=== PATIENT | male | born 1960 | race Caucasian/White ===

== ENCOUNTER 2023-05-30 16:06 | Emergency (ER) | payer BC, SELFPAY ==
[2023-05-30 16:11] VITALS: BP 181/91
[2023-05-30 17:12] VITALS: BP 158/83
[2023-05-30 17:14] VITALS: BMI 37.4
--- NOTE | 2023-05-30 17:40 | EDRN ---
Singh FLORES in room w/ pt and his at this time.
[2023-05-30] MEDS: MOTRIN 600 MG PO (18:00)
--- NOTE | 2023-05-30 18:15 | ED.GENMED ---
History of Present Illness
General
Chief Complaint: Musculo-Skeletal Complaint
Source: patient
Exam Limitations: none
Time Seen by Provider: 05/30/23 17:19
Nursing documentation reviewed up to this point in time: agreed with
Travel History
Have you had any contact with someone who has COVID-19?: No
Do you have any symptoms of coronavirus? Fever > 100 degrees, chills, cough, shortness of breath, sore throat, loss of taste or smell, muscle aches, or headache?: No
History of Present Illness
History of Present Illness:
62-year-old male with history of A-fib, had ablation and stopped his Xarelto 2 weeks ago, HTN, HLD presents with left hand pain, redness and swelling. Symptoms started yesterday, no recollection of overuse or injury. Denies fever or chills. He
does have a history of gout. But he states 'it's not gout.'
Past History
Past History
ED Past Medical History: Arrthythmia (Atrial fib), CAD, HTN and Hypercholesterolemia
ED Past Surgical History: Appendectomy and Other (Hernia repair)
Social History
Tobacco: Non-smoker
Alcohol: Occasional
Drug: None
Personal:
Living: with family
Employment: Employed
Family History
Family History: CAD
Review of Systems
Review of Systems
Allergies reviewed?: Yes
All Other Systems: ROS reviewed and negative except as documented in HPI and ROS
Constitutional: Denies fever or chills
Musculoskeletal: Reports other (pain and swelling left hand)
Phy Exam
Physical Exam
Physical Exam:
GENERAL: No acute distress. A&Ox3.
CONSTITUTIONAL: Afebrile.
RESPIRATORY: Regular respirations, nonlabored, lungs clear.
CARDIOVASCULAR: Regular rate and rhythm, no murmurs, no rubs.
MUSCULOSKELETAL: Left hand is tender and swollen from distal metacarpals shafts 3, 4 and 5 both dorsally and plantar aspects. Fingers 3,4,5 are swollen but not erythematous or warm. Some limited ROM of fingers due to swelling. Brisk capillary
refill. The dorsum is mildly erythematous from head of metacarpals to mid dorsum with mild lymphangitis to 1/3 up forearm. Well perfused.
SKIN: Warm, dry, pink
PSYCH: Normal mood and affect. Well kept, interactive and appropriate
NEUROLOGIC: Awake, alert and oriented. No focal neurological deficits
Course
Orders/Labs/Results
Orders:
Orders
05/30/23 17:48
Hand, Left 3 View [CR Hand - Left Min 3 Views] Urgent
Comment:
Reason For Exam: pain, swelling, redness
05/30/23 17:49
Ibuprofen [Motrin] 600 mg PO NOW STA
05/30/23 18:24
Cephalexin Monohydrate [Keflex] 500 mg PO NOW STA
05/30/23 19:02
Volar Left-Treatment ONCE
Vital Signs
Initial and Last Documented VS:
Initial Vital Signs
Temp Pulse Resp BP Pulse Ox
98 F 74 16 181/91 94
05/30/23 16:11 05/30/23 16:11 05/30/23 16:11 05/30/23 16:11 05/30/23 16:11
Last Documented Vital Signs
Temp Pulse Resp BP Pulse Ox
97.7 F 63 18 156/94 95
05/30/23 19:16 05/30/23 19:16 05/30/23 19:16 05/30/23 19:16 05/30/23 19:16
MDM/Problems Addressed
Differential Diagnosis Includes:
Cellulitis, fracture, soft tissue FB
MDM/Problems Addressed:
62-year-old male with history of A-fib, had ablation and stopped his Xarelto 2 weeks ago, HTN, HLD presents with left hand pain, redness and swelling. Symptoms started yesterday, no recollection of overuse or injury. Denies fever or chills. He
does have a history of gout. But he states 'it's not gout.'
Afebrile
05/30/2023 1858 PM
Left hand x-ray read by this examiner initially: No acute bony abnormality
Plan: Treat for cellulitis, prescription for doxycycline sent to his pharmacy, splint for 2 days, follow-up with Dr. Hancock hand specialist if no improvement within the next few days
*Critical Care Note
Total Time (30-74mins, 75-104mins- exclusive of procedures): Not Applicable
ED Attending Note
-
Portions of this chart may have been created with voice recognition software.� Occasional wrong word or��sound alike� substitutions may have occurred due to the inherent limitations of voice recognition software.
Discharge Plan
Departure
Patient Disposition: Home (Routine Discharge)
Date of Disposition: 05/30/23
Time of Disposition: 19:08
Patient with high blood pressure during this ER visit?: No
Condition: Good
Discharge Problem:
Cellulitis of left hand
Instructions: Cellulitis (Skin Infection), Adult ED
Prescriptions:
No Action
Xarelto 20 MG tablet
20 mg PO DAILY Qty: 14 0RF
lisinopril 20 MG tablet
20 mg PO BID
amlodipine 5 MG tablet
5 mg PO BID
amiodarone 200 mg Tablet
200 mg PO DAILY
rosuvastatin [Crestor] 20 mg Tablet
20 mg PO QPM
metoprolol succinate 25 MG tablet extended release 24 hr
12.5 mg PO DAILY Qty: 0 0RF
Referrals:
Kg Hancock MD [Active] - As needed
Parag Martinez MD [Family Provider] -
Activity Restrictions/Additional Instructions:
As we discussed, I sent a prescription for the antibiotic Keflex to your pharmacy, take 4 times a day for 10 days. If you are 100% better in 7 days you can stop taking the Keflex
Ibuprofen 600 mg, with food, every 6 hours as needed for pain.
Wear the splint and keep the hand elevated slightly higher than your heart is much as possible for the next 2 days.
Return here immediately if the red area spreads up to the elbow, you start to feel feverish or nauseous, pain and redness increases or start to feel sicker in any way.
Interventions
Interventions:
*Risk Screen - Suicide Last Done: 05/30/23 16:11
*General Assessment Last Done: 05/30/23 17:05
*Neglect/Abuse Screening Last Done: 05/30/23 16:11
ED- Fall Risk Assessment Last Done: 05/30/23 17:05
*ED COVID-19 Vaccine History Last Done: 05/30/23 16:11
*Nursing Disposition Last Done: 05/30/23 19:40
ED-Musculoskeletal Assessment Last Done: 05/30/23 19:00
Discharge Date and Time
Discharge Date/Time: 05/30/23 19:45
[2023-05-30] MEDS: KEFLEX 500 MG PO (18:35)
[2023-05-30 19:16] VITALS: BP 156/94
== END 2023-05-30 19:45 | disposition home or self-care (01) ==
LOC: EMR 16:06
PROVIDERS: EMERGENCY PHYSICIAN Emergency Medicine; FAMILY PHYSICIAN Family Medicine
DX: L03.114 Cellulitis of left upper limb (principal); M79.642 Pain in left hand; I48.91 Unspecified atrial fibrillation; I10 Essential (primary) hypertension; E78.00 Pure hypercholesterolemia, unspecified; I25.10 Atherosclerotic heart disease of native coronary artery without angina pectoris; Z82.49 Family history of ischemic heart disease and other diseases of the circulatory system; Z90.49 Acquired absence of other specified parts of digestive tract
CPT/HCPCS: 99283; 73130

== ENCOUNTER → 2023-11-19 07:20 | Outpatient (REF) | payer BC, SELFPAY | LOC: RCS 07:20 | PROVIDERS: ATTENDING PHYSICIAN Internal Medicine Cardiovascular Disease; FAMILY PHYSICIAN Family Medicine | DX: I48.92 Unspecified atrial flutter (principal); I10 Essential (primary) hypertension; I48.0 Paroxysmal atrial fibrillation | CPT/HCPCS: 93306 ==

== ENCOUNTER 2024-07-18 09:36 | Day surgery (SDC) | payer BC, SELFPAY ==
[2024-07-18 10:02] VITALS: BMI 36.9
--- NOTE | 2024-07-18 10:32 | ITS.CL.CARDI ---
Energy Efficiency Engineer - Cardioversion
Cardioversion
Procedure Report:
Date of Procedure: 07/18/24
Procedure: Cardioversion
Indication: Symptomatic atrial fibrillation
Performing Physician: Jose Whitt MD
Technique: The patient was brought to the holding area. Signed informed consent was obtained. A time out was called and performed. The patient was anesthetized by the anesthesia service. Anticoagulation status was reviewed and appropriate. R2 pads
were placed anteriorly and posteriorly. A 200 J synchronized biphasic shock restored normal sinus rhythm without significant bradycardia. There were no complications.
Conclusion: Uncomplicated cardioversion from atrial fibrillation to sinus rhythm.
Recommendation: Routine post cardioversion care. Continue usp anticoagulation.
== END 2024-07-18 11:00 | disposition home or self-care (01) ==
LOC: CATH 09:36
PROVIDERS: ATTENDING PHYSICIAN Internal Medicine Cardiovascular Disease; FAMILY PHYSICIAN Family Medicine; OTHER PHYSICIAN Internal Medicine Cardiovascular Disease
DX: I48.0 Paroxysmal atrial fibrillation (principal); I10 Essential (primary) hypertension; I25.10 Atherosclerotic heart disease of native coronary artery without angina pectoris; Z95.5 Presence of coronary angioplasty implant and graft; E78.00 Pure hypercholesterolemia, unspecified; G47.33 Obstructive sleep apnea (adult) (pediatric); Z79.01 Long term (current) use of anticoagulants
CPT/HCPCS: 92960; 93005

== ENCOUNTER 2024-10-09 06:00 | Day surgery (SDC) | payer BC, SELFPAY ==
[2024-09-21 12:57] VITALS: BMI 38.4
[2024-09-21 13:36] LABS: Hematocrit 41.8 % (39.0-52.0); Hemoglobin 14.6 g/dL (13.0-18.0); Mean Corp Hgb Conc. 34.9 g/dL (33.0-37.0); Mean Corpuscular Volume 92.7 fL (80.0-94.0); Nucleated Red Blood Cells % 0 % (-); Platelet Count 190 10^3/uL (130-400); Red Cell Dist. Width 12.8 % (11.5-14.5)
[2024-09-21 13:52] LABS: INR 2.43; PT 26.5 Sec (11.4-14.6)
[2024-09-21 14:15] LABS: ALT (SGPT) 40 U/L (0-50); AST (SGOT) 30 U/L (17-59); Albumin 4.8 g/dl (3.5-5.0); Alkaline Phosphatase 73 U/L (38-126); Blood Urea Nitrogen 21 mg/dl (9-20); Calcium 9.8 mg/dl (8.4-10.2); Carbon Dioxide 28 mmol/L (22-30); Chloride 107 mmol/L (98-107); Estimated Creatinine Clearance 81 ml/min; Glucose 156 mg/dl (70-99); Magnesium 2.2 mg/dl (1.6-2.3); Potassium 4.1 mmol/L (3.5-5.1); Sodium 144 mmol/L (135-145); Total Protein 7.5 g/dl (6.3-8.2); eGFR > 60.00
[2024-10-09] VITALS (12 sets, daily range): BP systolic 109–140; BP diastolic 60–75; BMI 37.2
--- NOTE | 2024-10-09 07:21 | ITS.CL.ABL ---
Check Writer Salesperson - Ablation
Ablation
Procedure Report:
ELECTROPHYSIOLOGIC STUDY AND POSSIBLE ABLATION
DATE: October 09, 2024
Primary Care Provider: Dr Parag Martinez
Primary Patent Examiner: Dr. Maurice Jones
INDICATION:
Symptomatic Atrial Fibrillation.
Persistent.
HISTORY: See H and P.
Symptomatic AF, poorly controlled with attempted medical therapy.
In addition to atrial fibrillation, he has past medical history significant for CAD status post SRINIVAS to Ramus (01/2016), paroxysmal atrial fibrillation with multiple cardioversions and PVI ablation 08/13/2022,�on chronic anticoagulation with
Xarelto,�hypertension, hyperlipidemia, obstructive sleep apnea (on CPAP), chronic lower extremity edema.�
Echo October 2023 which showed preserved ejection fraction with no significant valvular disease.�
He recurred with atrial fibrillation in July 2023, symptomatic. Amiodarone was resumed and cardioversion performed. He stopped amiodarone in summer 2023 as he was maintaining normal sinus rhythm until June 2024 when he noticed increased palpitations
and elevated heart rate. Flyr watch alerted for atrial fibrillation which correlated with his symptoms.��He underwent cardioversion on 07/18/2024. Later that day he went back into atrial fibrillation, symptomatic.
HAS-BLED: 1
Age
CHADSVASc: 3
HTN
DM
Vascular Dz: CAD, prior CABG
PRESENTING RHYTHM: SR
HISTORY: See H and P.
Symptomatic AF, poorly controlled with attempted medical therapy.
ANTIARRHYTHMIC DRUG: Amiodarone 200 mg daily
ANTICOAGULATION: Rivaroxaban 20 mg daily
'TIME-OUT': called and confirmed.
SEDATION/ANESTHESIA: provided via the anesthesia department using general anesthesia.
PROCEDURE:
Ultrasound Guidance with real-time visualization of needle insertion and vessel patency performed by nd for femoral venous Vascular Access.
Under real-time US guidance, the needle was advanced with negative pressure into the vein. The needle was seen entering the vessel lumen with a good return of dark red flow, the syringe was removed, non-pulsatile, dark red blood low was noted and
the wire was passed without difficulty, then the needle was removed. US confirmed the wire was in the vein, not going into an artery,
Images were taken and saved for the patient's permanent record. Imaging findings typical femoral venous anatomy. Direct visualization of needle puncture into the femoral vein was observed and recorded.
A decapolar CS catheter was placed within the CS for mapping and pacing.
The intracardiac ultrasound catheter was positioned in the RA for continuous intracardiac ultrasound imaging.
Heparin bolus and infusion to target ACT at 300 -350 seconds was administered. Transseptal puncture was performed. This entailed advancing a sheath with dilator into the superior vena cava and withdrawing both (monitoring intracardiac ultrasound,
fluoroscopy and tip pressure) with the tip oriented toward the atrial septum. The fossa ovalis was engaged (indicated by sudden displacement of the sheath tip as well as tenting of the fossa seen on intracardiac ultrasound).
Transseptal puncture was performed. Left atrial catheter position was confirmed by echocardiographic imaging, pressure monitoring (LA mean pressure 18 mm Hg) and fluoroscopy. The sheath was advanced over the dilator and positioned in the left
atrium.
The [employer] multipolar mapping/ablation Sphere-9 catheter was positioned through the transseptal sheath for high density mapping.
Geometry and voltage mapping was performed using the [employer] mapping system for three-dimensional electroanatomical mapping.
Catheter positioning was guided and confirmed using both I.C.E. and fluoroscopy.
High density electroanatomical three-dimensional mapping demonstrated LSPV, LIPV, RSPV, RIPV.
The right sided PVs are isolated except for reconnection at the upper septal quadrant of the RSPV.. The Left PVs are isolated except for the upper medial quadrant of the LSPV.
Ablation strategy included re-PVI as well as mapping for extra PV contributors to atrial fibrillation which would also be targeted if present.
After accomplishing pulmonary venous isolation, mapping identified additional areas likely to be extra PV contributors to atrial fibrillation. These areas demonstrated patchy low voltage as well as complex fractionated electrograms. These areas can
be sites for the formation of rotors which can drive and maintain atrial fibrillation. These areas are known to be significant contributors to initiation and perpetuation of atrial fibrillation.
Additional energy applications/additional ablation sets targeted extra PV contributors to atrial fibrillation.
Targets for additional PFA ablation included:
LA posterior wall targeted with pulsed electric field energy isolating the posterior wall of the left atrium
After ablation of the posterior wall, additional targets were addressed:
LA inferior floor line
Anterior LA roof line
The ridge of tissue between the left atrial appendage and the left sided pulmonary veins (Ligament of Boaz)
These areas were ablated using pulsed electric field energy eliminating the extra PV contributors to atrial fibrillation.
Post ablation mapping finds electrical isolation at each of the pulmonary veins (LSPV, LIPV, RSPV, RIPV), the LA posterior wall and at the additional lines at Anterior roof of the LA, Inferior/floor of the LA and the Ligament of Marshal rendering
the sites no longer able to contribute to atrial fibrillation.
Programmed electrostimulation including burst atrial pacing as well the delivery of decremental extrastimuli down to atrial effective refractory period and no sustained arrhythmias could be induced.
I.C.E. :
Pre-Ablation Post-Ablation
LVEF: 55 % 55 %
WMA: none none
Pericardial effusion: none none
COMPLICATIONS:
none
SUMMARY:
- Mapping and ablation to isolate the PVs resulting in electrical isolation of the pulmonary veins
- Additional AF ablation sets X 3 after PVI (LA posterior wall, Inf/floor of the LA posterior wall, Ligament of Boaz) resulting in elimination of the targeted extra PV contributors to atrial fibrillation.
- 3-D Electroanatomical Mapping
- Intracardiac Ultrasound
- Ultrasound guidance for vascular access
Post ablation, I discussed today's findings and results with the patient's , Eloisa
RECOMMENDATIONS:
- Observe in monitored bed.
- Maintain oral anticoagulation.
- Discontinue amiodarone
- Office visit with Dr. Maurice Jones January 12, 2025
Copy to:
Dr Parag Martinez
Dr. Maurice Jones
[2024-10-09 08:23] LABS: ACT-LR - POC 313 Seconds (116-155)
[2024-10-09 08:44] LABS: ACT-LR - POC 300 Seconds (116-155)
--- NOTE | 2024-10-09 13:43 | W.PN.UPDATE ---
Update Note
Progress Note Update
Pt seen post PFA. Right groin site without ht/bleeding. OOB ambulating, urinating without difficulty. Post EKG SB 50s w/PAC, no acute changes. Resume xarelto tonight at usual time. Discontinue amiodarone. Followup at [facility] as scheduled. Home later
today if groin site/tele remain stable.
== END 2024-10-09 13:57 | disposition home or self-care (01) ==
LOC: CATH 06:00
PROVIDERS: ATTENDING PHYSICIAN Internal Medicine Cardiovascular Disease; FAMILY PHYSICIAN Family Medicine; OTHER PHYSICIAN Internal Medicine Cardiovascular Disease
DX: I48.19 Other persistent atrial fibrillation (principal); I48.92 Unspecified atrial flutter; I25.10 Atherosclerotic heart disease of native coronary artery without angina pectoris; E66.9 Obesity, unspecified; Z68.38 Body mass index [BMI] 38.0-38.9, adult; G47.33 Obstructive sleep apnea (adult) (pediatric); I10 Essential (primary) hypertension; E78.5 Hyperlipidemia, unspecified; I48.0 Paroxysmal atrial fibrillation; I25.2 Old myocardial infarction; R73.03 Prediabetes; Z79.01 Long term (current) use of anticoagulants; Z79.899 Other long term (current) drug therapy; I45.10 Unspecified right bundle-branch block; I49.1 Atrial premature depolarization; M10.9 Gout, unspecified; Z77.22 Contact with and (suspected) exposure to environmental tobacco smoke (acute) (chronic); Z90.49 Acquired absence of other specified parts of digestive tract; Z95.1 Presence of aortocoronary bypass graft
CPT/HCPCS: C1769; C1892; C1766; C1733; 36415; 80053; 83735; 85025; 85347; 85610; 86850; 86900; 86901; 93005; 93656; 93657; C1730; C1894